=== PATIENT | male | born 1970 | race Two or more races ===

== ENCOUNTER 2019-02-04 08:32 | Emergency (ER) | payer MEDICAID, OTHER ==
[~2019-02-04] VITALS: Ht 167.6 cm; Wt 108.9 kg
[2019-02-04 09:17] VITALS: BP 142/78
== END 2019-02-04 10:16 | disposition home or self-care (01) ==
LOC: ER 08:35
DX: M25.561 Pain in right knee (principal); I10 Essential (primary) hypertension; M19.90 Unspecified osteoarthritis, unspecified site; Z76.0 Encounter for issue of repeat prescription
CPT/HCPCS: 73562

== ENCOUNTER 2019-03-20 12:34 | Emergency (ER) | payer MEDICAID ==
[~2019-03-20] VITALS: Ht 167.6 cm; Wt 108.9 kg
[2019-03-20 13:11] VITALS: BP 118/65
== END 2019-03-20 13:49 | disposition home or self-care (01) ==
LOC: ER 12:34
DX: I10 Essential (primary) hypertension (principal); F41.9 Anxiety disorder, unspecified; Z76.0 Encounter for issue of repeat prescription

== ENCOUNTER 2020-12-14 23:38 | Emergency (ER) | payer MEDICAID ==
[~2020-12-14] VITALS: Ht 167.6 cm; Wt 77.1 kg
[2020-12-14 23:38] VITALS: BP 116/75
== END 2020-12-15 01:03 | disposition home or self-care (01) ==
LOC: ER 23:40
DX: F41.9 Anxiety disorder, unspecified (principal); F32.9 Major depressive disorder, single episode, unspecified; I10 Essential (primary) hypertension

== ENCOUNTER 2022-03-07 14:44 | Emergency (ER) | payer MEDICAID ==
[~2022-03-07] VITALS: Ht 167.6 cm; Wt 89.9 kg
[2022-03-07] MEDS ORDERED: ASPirin 81 mg TAB PO ONE (15:15)
[2022-03-07 15:19] LABS: Basophils # (auto) 0 10 ^3/uL (0-0.2); Basophils % (auto) 0.5 % (0.0-2.0); Eosinophils # (auto) 0.2 10 ^3/uL (0-0.8); Mean Corpuscular Volume 78.2 fL (80.0-100.0); Nucleated Red Blood Cells % 0.1 %
[2022-03-07 15:20] LABS: Eosinophils % (auto) 2.7 % (0.0-7.0); Hematocrit 45.3 % (41.0-53.0); Hemoglobin 14.7 g/dL (13.5-17.5); Mean Corpuscular Hemoglobin 25.4 pg (28.0-32.0); Mean Corpuscular Hgb Conc. 32.5 g/dL (32.0-36.0); Monocytes # (auto) 0.4 10 ^3/uL (0-1.3); Monocytes % (auto) 6.1 % (0.0-12.0); Neutrophils # (auto) 4.6 10 ^3/uL (1.6-8.6); Neutrophils % (auto) 74.7 % (37.0-80.0); Red Blood Cells 5.79 10^6/uL (4.5-5.90); Red Cell Distribution Width 16.2 % (11.8-14.3); White Blood Cell 6.1 10^3/uL (4.4-10.8)
[2022-03-07 15:36] LABS: Potassium 4.8 mmol/L (3.5-5.1)
[2022-03-07 15:44] LABS: Albumin 3.9 g/dL (3.4-5.0); BUN/Creatinine Ratio 10.4; Bilirubin, Total 4.4 mg/dL (0.2-1.0); Calcium 8.8 mg/dL (8.5-10.1); Total Protein 7.9 g/dL (6.4-8.2)
[2022-03-07 18:00] VITALS: BP 155/70
== END 2022-03-07 18:06 | disposition home or self-care (01) ==
LOC: ER 14:44
DX: R07.89 Other chest pain (principal); I10 Essential (primary) hypertension
CPT/HCPCS: 36415; 70450; 71046; 80053; 84484; 85025; 93005

== ENCOUNTER 2022-07-27 15:48 | Inpatient (IN) | payer MEDICAID, OTHER ==
[~2022-07-27] VITALS: Ht 167.6 cm; Wt 86.7 kg
[2022-07-27] MEDS ORDERED: IOHEXOL 300 MG/ML 100ML BOTTLE IJ ONE (16:04)
[2022-07-27 16:47] LABS: Alanine Aminotransferase 42 U/L (16-61); Albumin 3.8 g/dL (3.4-5.0); Anion Gap 9 (5-15); Aspartate Aminotransferase 91 U/L (15-37); BUN/Creatinine Ratio 25.7; Blood Alcohol < 3.0 mg/dL (0-5); Blood Urea Nitrogen 29 mg/dL (7-18); Calcium 8.8 mg/dL (8.5-10.1); Carbon Dioxide 26 mmol/L (21-32); Chloride 112 mmol/L (98-107); GFR African American 88 mL/min; GFR Non-African American 73 mL/min; Glucose 107 mg/dL (74-106); Potassium 3.5 mmol/L (3.5-5.1); Sodium 147 mmol/L (136-145)
[2022-07-27 16:51] LABS: Basophils # (auto) 0 10 ^3/uL (0-0.2); Eosinophils # (auto) 0 10 ^3/uL (0-0.8); Eosinophils % (auto) 0.5 % (0.0-7.0)
[2022-07-27 16:53] LABS: Basophils % (auto) 0.4 % (0.0-2.0); Hematocrit 42.7 % (41.0-53.0); Hemoglobin 14.6 g/dL (13.5-17.5); Lymphocytes # (auto) 0.8 10 ^3/uL (0.4-5.4); Lymphocytes % (auto) 11.9 % (10.0-50.0); Mean Corpuscular Hemoglobin 26.1 pg (28.0-32.0); Mean Corpuscular Hgb Conc. 34.3 g/dL (32.0-36.0); Mean Corpuscular Volume 76.3 fL (80.0-100.0); Monocytes # (auto) 0.5 10 ^3/uL (0-1.3); Monocytes % (auto) 8.4 % (0.0-12.0); Neutrophils # (auto) 5.1 10 ^3/uL (1.6-8.6); Neutrophils % (auto) 78.8 % (37.0-80.0); Nucleated Red Blood Cells % 0.8 %; Red Blood Cells 5.59 10^6/uL (4.5-5.90); Red Cell Distribution Width 16.5 % (11.8-14.3); White Blood Cell 6.5 10^3/uL (4.4-10.8)
[2022-07-27 17:01] LABS: Alkaline Phosphatase 56 U/L (45-117); Bilirubin, Total 4.4 mg/dL (0.2-1.0); Creatine Kinase IFCC 1911 U/L (39-308); Total Protein 7.2 g/dL (6.4-8.2)
[2022-07-27 17:11] LABS: INR 1.31 (0.9-1.15); Partial Thromboplastin Time 28.5 sec (24.6-33.4)
[2022-07-28] MEDS ORDERED: ONDANSETRON HCL 4 MG/2 ML VIAL IV PRN (03:00)
[2022-07-28] MEDS ORDERED: IBUPROFEN 600 MG TAB PO PRN (03:00)
[2022-07-28] MEDS ORDERED: HYDROcodone-ACET 5/325MG TAB PO PRN (03:00)
[2022-07-28] MEDS ORDERED: DOCUSATE SOD 100 MG CAP PO PRN (03:00)
[2022-07-28] MEDS ORDERED: MORPHINE SULFATE INJ 2 MG/ml SYRG IV PRN ×2 (03:00→03:15)
[2022-07-28] MEDS ORDERED: NITROGLYCERIN 0.4 MG SL TAB SL PRN (03:15)
[2022-07-28] MEDS: LACTATED RINGER'S 1,000 ML IV SCH (04:19)
[2022-07-28 05:13] LABS: Basophils # (auto) 0 10 ^3/uL (0-0.2); Mean Corpuscular Hemoglobin 25.4 pg (28.0-32.0); Monocytes # (auto) 0.4 10 ^3/uL (0-1.3); Neutrophils # (auto) 3.7 10 ^3/uL (1.6-8.6); Nucleated Red Blood Cells % 0.2 %
[2022-07-28 05:15] LABS: Basophils % (auto) 0.4 % (0.0-2.0); Eosinophils # (auto) 0.1 10 ^3/uL (0-0.8); Eosinophils % (auto) 1.3 % (0.0-7.0); Hematocrit 41.1 % (41.0-53.0); Hemoglobin 13.6 g/dL (13.5-17.5); Lymphocytes # (auto) 0.8 10 ^3/uL (0.4-5.4); Lymphocytes % (auto) 15.9 % (10.0-50.0); Mean Corpuscular Hgb Conc. 33.1 g/dL (32.0-36.0); Mean Corpuscular Volume 76.7 fL (80.0-100.0); Monocytes % (auto) 8.5 % (0.0-12.0); Neutrophils % (auto) 73.9 % (37.0-80.0); Red Blood Cells 5.37 10^6/uL (4.5-5.90); Red Cell Distribution Width 16.8 % (11.8-14.3); White Blood Cell 5.1 10^3/uL (4.4-10.8)
[2022-07-28 05:38] LABS: Potassium 3.8 mmol/L (3.5-5.1)
[2022-07-28 05:47] LABS: Albumin 3.4 g/dL (3.4-5.0); BUN/Creatinine Ratio 30.4; Calcium 8.7 mg/dL (8.5-10.1)
[2022-07-28] MEDS: LACTULOSE 20Gm/30ML SOLN PO SCH ×3 (06:12→17:42)
[2022-07-28 08:22] VITALS: BP 131/61
[2022-07-28 08:56] VITALS: BP 131/61
[2022-07-28] MEDS: FAMOTIDINE (10MG/ML) 2ML VL IV SCH ×2 (11:08→21:14)
[2022-07-28 13:00] VITALS: BP 121/75
[2022-07-28] MEDS: chlordiazePOXIDE HCL 25 MG CAP PO SCH ×2 (13:06→17:42)
[2022-07-28] MEDS: FOLIC ACID 1 MG, MULTIPLE VITAMIN 10 ML, MAGNESIUM SULF SDV 50% 8 MEQ, THIAMINE INJ 100... INJ SCH ×5 (14:08)
[2022-07-28 16:39] VITALS: BP 126/70
[2022-07-28 18:25] LABS: Urine Amorphous Crystal MOD /hpf (None Seen); Urine Bacteria FEW /hpf (None Seen); Urine Blood Negative /uL (Negative); Urine Mucus FEW (None Seen); Urine Specific Gravity 1.036 (1.001-1.035); Urine WBC 95 /hpf (0 - 3)
[2022-07-28 18:39] LABS: Protein, Urine 26.9 mg/dL (0.0-11.9)
[2022-07-28 18:41] LABS: Amphetamine Screen, Urine NEGATIVE (NEGATIVE); Barbiturate Scree,Urine NEGATIVE (NEGATIVE); Benzodiazephine Screen, Urine NEGATIVE (NEGATIVE); Cannabinoid Screen, Urine POSITIVE (NEGATIVE); Cocaine Screen, Urine NEGATIVE (NEGATIVE); Opiate Scree,Urine NEGATIVE (NEGATIVE); Phencyclidine Screen, Urine NEGATIVE (NEGATIVE)
[2022-07-28 22:00] VITALS: BP 110/68
[2022-07-29] MEDS: LACTULOSE 20Gm/30ML SOLN PO SCH ×4 (00:06→18:46)
[2022-07-29] MEDS: chlordiazePOXIDE HCL 25 MG CAP PO SCH ×3 (03:32→22:01)
[2022-07-29 05:00] VITALS: BP 119/69
[2022-07-29 05:36] LABS: Basophils # (auto) 0 10 ^3/uL (0-0.2); Monocytes # (auto) 0.2 10 ^3/uL (0-1.3); Neutrophils # (auto) 1.7 10 ^3/uL (1.6-8.6); Red Cell Distribution Width 16.6 % (11.8-14.3)
[2022-07-29 05:41] LABS: Basophils % (auto) 0.6 % (0.0-2.0); Eosinophils # (auto) 0 10 ^3/uL (0-0.8); Hematocrit 37.2 % (41.0-53.0); Hemoglobin 12.8 g/dL (13.5-17.5); Lymphocytes # (auto) 0.3 10 ^3/uL (0.4-5.4); Mean Corpuscular Hemoglobin 26.4 pg (28.0-32.0); Mean Corpuscular Hgb Conc. 34.5 g/dL (32.0-36.0); Mean Corpuscular Volume 76.6 fL (80.0-100.0); Monocytes % (auto) 7.4 % (0.0-12.0); Nucleated Red Blood Cells % 0.6 %; Red Blood Cells 4.86 10^6/uL (4.5-5.90); White Blood Cell 2.2 10^3/uL (4.4-10.8)
[2022-07-29 05:51] LABS: Potassium 3.4 mmol/L (3.5-5.1)
[2022-07-29 06:02] LABS: Albumin 3.1 g/dL (3.4-5.0); BUN/Creatinine Ratio 25.8; Bilirubin, Total 3.9 mg/dL (0.2-1.0); Calcium 8.2 mg/dL (8.5-10.1); Total Protein 6.3 g/dL (6.4-8.2)
[2022-07-29] MEDS: LACTATED RINGER'S 1,000 ML IV SCH ×3 (06:16→19:00)
[2022-07-29 08:54] VITALS: BP 107/64
[2022-07-29] MEDS: FAMOTIDINE (10MG/ML) 2ML VL IV SCH ×2 (11:24→22:01)
[2022-07-29] MEDS: FOLIC ACID 1 MG, MULTIPLE VITAMIN 10 ML, MAGNESIUM SULF SDV 50% 8 MEQ, THIAMINE INJ 100... INJ SCH ×5 (12:35)
[2022-07-29 13:00] VITALS: BP 113/66
[2022-07-29 16:53] VITALS: BP 109/67
[2022-07-29 22:00] VITALS: BP 118/60
[2022-07-30 05:00] VITALS: BP 105/62
[2022-07-30] MEDS: LACTULOSE 20Gm/30ML SOLN PO SCH ×4 (06:24→18:56)
[2022-07-30] MEDS: LACTATED RINGER'S 1,000 ML IV SCH ×2 (08:20→13:25)
[2022-07-30 09:00] VITALS: BP 118/71
[2022-07-30] MEDS: chlordiazePOXIDE HCL 25 MG CAP PO SCH ×2 (09:51→21:21)
[2022-07-30] MEDS: FAMOTIDINE (10MG/ML) 2ML VL IV SCH ×2 (09:51→21:20)
[2022-07-30] MEDS ORDERED: POTASSIUM EFFERVESENT TAB 25 MEQ PO ONE (10:30)
[2022-07-30 13:00] VITALS: BP 109/66
[2022-07-30] MEDS: FOLIC ACID 1 MG, MULTIPLE VITAMIN 10 ML, MAGNESIUM SULF SDV 50% 8 MEQ, THIAMINE INJ 100... INJ SCH ×5 (13:46)
[2022-07-30 16:57] VITALS: BP 111/73
[2022-07-30 22:00] VITALS: BP 107/64
[2022-07-31] MEDS: LACTULOSE 20Gm/30ML SOLN PO SCH ×7 (00:33→23:42)
[2022-07-31 05:00] VITALS: BP 118/56
[2022-07-31 05:56] LABS: Basophils # (auto) 0 10 ^3/uL (0-0.2); Eosinophils # (auto) 0.1 10 ^3/uL (0-0.8); Eosinophils % (auto) 2.9 % (0.0-7.0); Lymphocytes # (auto) 0.4 10 ^3/uL (0.4-5.4); Monocytes # (auto) 0.2 10 ^3/uL (0-1.3)
[2022-07-31 05:58] LABS: Basophils % (auto) 0.6 % (0.0-2.0); Hematocrit 34.4 % (41.0-53.0); Hemoglobin 11.8 g/dL (13.5-17.5); Lymphocytes % (auto) 19.5 % (10.0-50.0); Mean Corpuscular Hemoglobin 26.1 pg (28.0-32.0); Mean Corpuscular Hgb Conc. 34.4 g/dL (32.0-36.0); Mean Corpuscular Volume 75.8 fL (80.0-100.0); Monocytes % (auto) 8.5 % (0.0-12.0); Neutrophils # (auto) 1.5 10 ^3/uL (1.6-8.6); Neutrophils % (auto) 68.5 % (37.0-80.0); Nucleated Red Blood Cells % 0.1 %; Red Blood Cells 4.54 10^6/uL (4.5-5.90); Red Cell Distribution Width 16.1 % (11.8-14.3); White Blood Cell 2.2 10^3/uL (4.4-10.8)
[2022-07-31] MEDS: chlordiazePOXIDE HCL 25 MG CAP PO SCH ×2 (06:36→06:45)
[2022-07-31 09:00] VITALS: BP 112/62
[2022-07-31] MEDS: FAMOTIDINE (10MG/ML) 2ML VL IV SCH ×2 (10:00→21:26)
[2022-07-31] MEDS: LACTATED RINGER'S 1,000 ML IV SCH (11:00)
[2022-07-31 12:28] LABS: Hepatitis B Surface Antibody Positive (Negative)
[2022-07-31 13:36] LABS: Hepatitis A Total Antibody Positive (Negative); Hepatitis C Antibody Negative (Negative)
[2022-07-31] MEDS: FOLIC ACID 1 MG, MULTIPLE VITAMIN 10 ML, MAGNESIUM SULF SDV 50% 8 MEQ, THIAMINE INJ 100... INJ SCH ×5 (14:55)
[2022-07-31 17:00] VITALS: BP 110/65
[2022-08-01] MEDS: LACTATED RINGER'S 1,000 ML IV SCH ×2 (00:05→13:40)
[2022-08-01] MEDS: LACTULOSE 20Gm/30ML SOLN PO SCH ×4 (05:35→23:20)
[2022-08-01 05:47] VITALS: BP 104/60
[2022-08-01 06:21] LABS: Calcium 7.9 mg/dL (8.5-10.1); Potassium 3.9 mmol/L (3.5-5.1)
[2022-08-01 06:27] LABS: BUN/Creatinine Ratio 16.2; Bilirubin, Total 1.5 mg/dL (0.2-1.0); Total Protein 6.2 g/dL (6.4-8.2)
[2022-08-01 06:38] LABS: Basophils # (auto) 0 10 ^3/uL (0-0.2); Basophils % (auto) 0.5 % (0.0-2.0); Eosinophils # (auto) 0.1 10 ^3/uL (0-0.8); Lymphocytes # (auto) 0.4 10 ^3/uL (0.4-5.4); Monocytes # (auto) 0.2 10 ^3/uL (0-1.3); Neutrophils # (auto) 1.5 10 ^3/uL (1.6-8.6); White Blood Cell 2.2 10^3/uL (4.4-10.8)
[2022-08-01 06:42] LABS: Hematocrit 35.2 % (41.0-53.0); Hemoglobin 12.1 g/dL (13.5-17.5); Lymphocytes % (auto) 19.7 % (10.0-50.0); Mean Corpuscular Hemoglobin 26.2 pg (28.0-32.0); Mean Corpuscular Hgb Conc. 34.5 g/dL (32.0-36.0); Mean Corpuscular Volume 76.1 fL (80.0-100.0); Monocytes % (auto) 9.2 % (0.0-12.0); Neutrophils % (auto) 67.6 % (37.0-80.0); Nucleated Red Blood Cells % 0.6 %; Red Blood Cells 4.62 10^6/uL (4.5-5.90); Red Cell Distribution Width 16.2 % (11.8-14.3)
[2022-08-01] MEDS: FAMOTIDINE (10MG/ML) 2ML VL IV SCH ×2 (09:01→22:57)
[2022-08-01 09:06] VITALS: BP 123/69
[2022-08-01] MEDS ORDERED: traMADol HCL 50 MG TAB PO PRN (10:45)
[2022-08-01 13:00] VITALS: BP 106/62
[2022-08-01] MEDS: FOLIC ACID 1 MG, MULTIPLE VITAMIN 10 ML, MAGNESIUM SULF SDV 50% 8 MEQ, THIAMINE INJ 100... INJ SCH ×5 (14:19)
[2022-08-01 16:45] VITALS: BP 114/65
[2022-08-01 22:00] VITALS: BP 113/65
[2022-08-02] MEDS: LACTATED RINGER'S 1,000 ML IV SCH (02:42)
[2022-08-02 05:00] VITALS: BP 101/65
[2022-08-02] MEDS: LACTULOSE 20Gm/30ML SOLN PO SCH ×2 (05:31→12:00)
[2022-08-02 07:01] LABS: Basophils # (auto) 0 10 ^3/uL (0-0.2); Eosinophils # (auto) 0.1 10 ^3/uL (0-0.8); Eosinophils % (auto) 3.2 % (0.0-7.0); Hemoglobin 11.9 g/dL (13.5-17.5); Lymphocytes # (auto) 0.5 10 ^3/uL (0.4-5.4); Neutrophils # (auto) 1.7 10 ^3/uL (1.6-8.6); Red Cell Distribution Width 16.5 % (11.8-14.3)
[2022-08-02 07:03] LABS: Basophils % (auto) 0.6 % (0.0-2.0); Hematocrit 34.9 % (41.0-53.0); Lymphocytes % (auto) 18.2 % (10.0-50.0); Mean Corpuscular Hemoglobin 26.1 pg (28.0-32.0); Mean Corpuscular Hgb Conc. 34.1 g/dL (32.0-36.0); Mean Corpuscular Volume 76.6 fL (80.0-100.0); Monocytes # (auto) 0.3 10 ^3/uL (0-1.3); Nucleated Red Blood Cells % 0.3 %; Red Blood Cells 4.55 10^6/uL (4.5-5.90); White Blood Cell 2.5 10^3/uL (4.4-10.8)
[2022-08-02 07:19] LABS: Albumin 2.9 g/dL (3.4-5.0); Calcium 8.2 mg/dL (8.5-10.1)
[2022-08-02 07:21] LABS: BUN/Creatinine Ratio 13.9
[2022-08-02 07:25] LABS: Bilirubin, Total 1.3 mg/dL (0.2-1.0); Total Protein 6.1 g/dL (6.4-8.2)
[2022-08-02 08:11] LABS: Potassium 4.1 mmol/L (3.5-5.1)
[2022-08-02 09:11] VITALS: BP 120/65
[2022-08-02] MEDS: FAMOTIDINE (10MG/ML) 2ML VL IV SCH (10:24)
[2022-08-02] MEDS: FOLIC ACID 1 MG, MULTIPLE VITAMIN 10 ML, MAGNESIUM SULF SDV 50% 8 MEQ, THIAMINE INJ 100... INJ SCH ×5 (12:00)
[2022-08-02 12:35] VITALS: BP 113/68
[2022-08-02 13:01] VITALS: BP 120/65
[2022-08-02 13:40] LABS: BUN/Creatinine Ratio 14.5; Calcium 8.5 mg/dL (8.5-10.1); Potassium 4.2 mmol/L (3.5-5.1)
== END 2022-08-02 14:59 | disposition home or self-care (01) | DRG 441 ==
LOC: EDBD 15:48 → EEVIPCON 15:48 → ER 15:48 → EDUNIT# 15:48 → TELE 07-28 03:12 → TELE-WESTW 07-28 08:11
PROVIDERS: ADMIT Nurse Practitioner Family; ATTEND Family Medicine
DX: K76.82 Hepatic encephalopathy (principal); G93.41 Metabolic encephalopathy; E87.0 Hyperosmolality and hypernatremia; E87.1 Hypo-osmolality and hyponatremia; M62.82 Rhabdomyolysis; N17.9 Acute kidney failure, unspecified; F10.139 Alcohol abuse with withdrawal, unspecified; N39.0 Urinary tract infection, site not specified; I10 Essential (primary) hypertension; Z20.822 Contact with and (suspected) exposure to COVID-19; E86.0 Dehydration; K74.60 Unspecified cirrhosis of liver; F17.200 Nicotine dependence, unspecified, uncomplicated; D69.6 Thrombocytopenia, unspecified; F41.9 Anxiety disorder, unspecified; Y90.9 Presence of alcohol in blood, level not specified
CPT/HCPCS: 36415; 70450; 71260; 72125; 74177; 76705; 76775; 80048; 80053; 80307; 80320; 81001; 82105; 82140; 82306; 82550; 82570; 83970; 84100; 84156; 84300; 85025; 85610; 85730; 86704; 86706; 86708; 86803; 86850; 86900; 86901; 87081; 87340; 87426; 96361; 96365; G0378; J3490